=== PATIENT | male | born 1935 | race Caucasian/White ===

== ENCOUNTER 2021-04-11 11:53 | Inpatient (IN) | payer OTHER ==
[~2021-04-11] VITALS: Ht 160 cm; Wt 60.5 kg
[~2021-04-11 11:53] MED LIST: ALLO100T; AMLO-489; ASPI325T4; ATEN100T; GEMF-19; HYDR-2551; METF-370; OMEP20TA
[2021-04-11 13:25] LABS: Basophils # (auto) 0.1 10 ^3/uL (0-0.2); Basophils % (auto) 0.8 % (0.0-2.0); Eosinophils # (auto) 0.1 10 ^3/uL (0-0.8); Eosinophils % (auto) 1.5 % (0.0-7.0); Hematocrit 46.5 % (41.0-53.0); Hemoglobin 16.2 g/dL (13.5-17.5); Lymphocytes # (auto) 1.8 10 ^3/uL (0.4-5.4); Mean Corpuscular Hgb Conc. 34.8 g/dL (32.0-36.0); Mean Corpuscular Volume 89.1 fL (80.0-100.0); Monocytes # (auto) 0.9 10 ^3/uL (0-1.3); Monocytes % (auto) 8.8 % (0.0-12.0); Neutrophils # (auto) 7.1 10 ^3/uL (1.6-8.6); Neutrophils % (auto) 70.9 % (37.0-80.0); Nucleated Red Blood Cells % 0.1 %; Red Blood Cells 5.22 10^6/uL (4.5-5.90); Red Cell Distribution Width 13.6 % (11.8-14.3)
[2021-04-11 13:45] LABS: Potassium 4.3 mmol/L (3.5-5.1)
[2021-04-11 14:02] LABS: Albumin 3.8 g/dL (3.4-5.0); BUN/Creatinine Ratio 26.4; Bilirubin, Total 1.1 mg/dL (0.2-1.0); Calcium 9.1 mg/dL (8.5-10.1); Magnesium 2.5 mg/dL (1.6-2.6)
[2021-04-11] MEDS ORDERED: DEXTROSE (50%) 50ML SYRG IV PRN (15:15)
[2021-04-11] MEDS ORDERED: hydrALAZINE HCL 20 MG/ML VL IV PRN (15:15)
[2021-04-11] MEDS ORDERED: ONDANSETRON HCL 4 MG/2 ML VIAL IV PRN (15:15)
[2021-04-11] MEDS ORDERED: MORPHINE SULFATE INJECTION 2 MG/ML SYRG IV PRN (15:15)
[2021-04-11] MEDS ORDERED: NITROGLYCERIN 0.4 MG SL TAB SL PRN (15:15)
[2021-04-11] MEDS: ACCU-CHEK COMFORT CURVE STRIP VI SCH ×2 (18:31→22:29)
[2021-04-11] MEDS: InsuLIN REG 1unit/0.01ml Soln (100units/ml) SC SCH ×2 (18:31→22:00)
[2021-04-11] MEDS: ENOXAPARIN SOD 80 MG/0.8ML SYRINGE SC SCH (18:32)
[2021-04-11 22:00] VITALS: BP 139/70
[2021-04-11] MEDS: ATORVASTATIN 20 MG TAB PO SCH (22:28)
[2021-04-11] MEDS: GEMFIBROZIL 600 MG TAB PO SCH (22:29)
[2021-04-11] MEDS: LISINOPRIL 5 MG TAB PO SCH (22:29)
[2021-04-11] MEDS: METOPROLOL TARTRATE 25 MG TAB PO SCH (22:31)
[2021-04-12 04:03] LABS: Urine Bacteria NONE SEEN /hpf (None Seen); Urine Blood Negative /uL (Negative); Urine Hyaline Cast MOD /lpf (0 - 2); Urine Mucus FEW (None Seen); Urine Specific Gravity 1.026 (1.001-1.035); Urine WBC 8 /hpf (0 - 3)
[2021-04-12] MEDS: ENOXAPARIN SOD 80 MG/0.8ML SYRINGE SC SCH ×2 (04:05→17:31)
[2021-04-12] MEDS: ACCU-CHEK COMFORT CURVE STRIP VI SCH ×4 (06:00→22:13)
[2021-04-12] MEDS: InsuLIN REG 1unit/0.01ml Soln (100units/ml) SC SCH ×4 (06:05→21:50)
[2021-04-12 08:30] LABS: Calcium 8.6 mg/dL (8.5-10.1); INR 1.1 (0.9-1.15); Partial Thromboplastin Time 42.1 sec (23.6-33.0); Potassium 3.9 mmol/L (3.5-5.1)
[2021-04-12 08:33] LABS: BUN/Creatinine Ratio 24.5; Basophils # (auto) 0.1 10 ^3/uL (0-0.2); Basophils % (auto) 0.8 % (0.0-2.0); Eosinophils # (auto) 0.2 10 ^3/uL (0-0.8); Eosinophils % (auto) 2.5 % (0.0-7.0); Hematocrit 43.9 % (41.0-53.0); Hemoglobin 14.9 g/dL (13.5-17.5); Lymphocytes # (auto) 2.2 10 ^3/uL (0.4-5.4); Lymphocytes % (auto) 26.2 % (10.0-50.0); Mean Corpuscular Hemoglobin 30.5 pg (28.0-32.0); Mean Corpuscular Hgb Conc. 34.1 g/dL (32.0-36.0); Mean Corpuscular Volume 89.5 fL (80.0-100.0); Monocytes # (auto) 0.8 10 ^3/uL (0-1.3); Monocytes % (auto) 9.7 % (0.0-12.0); Neutrophils # (auto) 5.1 10 ^3/uL (1.6-8.6); Neutrophils % (auto) 60.8 % (37.0-80.0); Nucleated Red Blood Cells % 0.1 %; Red Cell Distribution Width 13.6 % (11.8-14.3); White Blood Cell 8.5 10^3/uL (4.4-10.8)
[2021-04-12 09:00] VITALS: BP 107/61
[2021-04-12] MEDS: GEMFIBROZIL 600 MG TAB PO SCH ×2 (09:38→21:42)
[2021-04-12] MEDS: ASPirin 81 mg TAB PO SCH (09:38)
[2021-04-12] MEDS: METOPROLOL TARTRATE 25 MG TAB PO SCH ×2 (09:39→21:49)
[2021-04-12] MEDS: LISINOPRIL 5 MG TAB PO SCH ×2 (09:39→21:49)
[2021-04-12] MEDS: ALLOPURINOL 100 MG TAB PO SCH (09:40)
[2021-04-12] MEDS: ACETAMINOPHEN 325 MG TAB PO PRN ×2 (09:55→18:30)
[2021-04-12 13:00] VITALS: BP 136/64
[2021-04-12 17:00] VITALS: BP 140/69
[2021-04-12] MEDS: ATORVASTATIN 20 MG TAB PO SCH (21:42)
[2021-04-13 05:00] VITALS: BP 123/59
[2021-04-13] MEDS: ENOXAPARIN SOD 80 MG/0.8ML SYRINGE SC SCH (06:12)
[2021-04-13] MEDS: ACCU-CHEK COMFORT CURVE STRIP VI SCH ×2 (06:12→11:30)
[2021-04-13] MEDS: InsuLIN REG 1unit/0.01ml Soln (100units/ml) SC SCH ×2 (06:13→11:30)
[2021-04-13 09:00] VITALS: BP 143/68
[2021-04-13] MEDS: ASPirin 81 mg TAB PO SCH (09:28)
[2021-04-13] MEDS: GEMFIBROZIL 600 MG TAB PO SCH (09:30)
[2021-04-13] MEDS: LISINOPRIL 5 MG TAB PO SCH (09:44)
[2021-04-13] MEDS: METOPROLOL TARTRATE 25 MG TAB PO SCH (09:52)
[2021-04-13] MEDS: ALLOPURINOL 100 MG TAB PO SCH (10:00)
[2021-04-13 13:00] VITALS: BP 114/68
[2021-04-13] MEDS ORDERED: LISI-275 PO (13:51)
[2021-04-13] MEDS ORDERED: CLOP75TA70 PO (13:51)
[2021-04-13] MEDS ORDERED: ATOR20TA50 PO (13:51)
[2021-04-13] MEDS ORDERED: METO-6 PO (14:31)
[2021-04-13 17:00] VITALS: BP 136/70
== END 2021-04-13 18:45 | disposition home health service (06) | DRG 948 ==
LOC: EDBD 11:53 → ER 11:53 → TELE 15:11 → TELE-WESTW 17:43 → TELE-CENTR 04-12 04:01
PROVIDERS: ADMIT Hospitalist; ATTEND Hospitalist
DX: R53.1 Weakness (principal); F03.90 Unspecified dementia, unspecified severity, without behavioral disturbance, psychotic disturbance, mood disturbance, and anxiety; I11.9 Hypertensive heart disease without heart failure; I25.10 Atherosclerotic heart disease of native coronary artery without angina pectoris; K21.9 Gastro-esophageal reflux disease without esophagitis; Z20.822 Contact with and (suspected) exposure to COVID-19; R29.6 Repeated falls; E11.9 Type 2 diabetes mellitus without complications; M10.9 Gout, unspecified; R77.8 Other specified abnormalities of plasma proteins; Z82.49 Family history of ischemic heart disease and other diseases of the circulatory system; Z83.3 Family history of diabetes mellitus; Z91.81 History of falling; Z79.84 Long term (current) use of oral hypoglycemic drugs
CPT/HCPCS: 36415; 70450; 71045; 72125; 72170; 80048; 80053; 80061; 81001; 82962; 83036; 83735; 83880; 84484; 85025; 85610; 85730; 87086; 93005; 93306; 96372; 97163; G0378; J1815